=== PATIENT | female | born 1970 | race Caucasian/White ===

== ENCOUNTER 2019-03-24 16:05 | Emergency (ER) | payer MEDICAID, SELFPAY ==
[2019-03-24 16:06] VITALS: BP 162/97; PULSE 98; RESP 17; TEMP 36.8; O2SAT 94; BMI 34.2
[2019-03-24] MEDS: Naproxen 500 MG Tablet PO (16:52)
--- NOTE | 2019-03-24 17:00 | RAD_ITS ---
STUDY: X-RAY CHEST REASON FOR EXAM: Female, 48 years old. Left leg pain TECHNIQUE: PA and lateral views of the chest. COMPARISON: Prior study of 10/10/2015 FINDINGS: There is mild bilateral perihilar peribronchial cuffing. There is no demonstrated pleural abnormality. Normal size heart. Normal mediastinum and [place]. Normal visualized pulmonary arteries. Normal visualized aortic arch and descending thoracic aorta. Normal visualized thoracic spine. Normal visualized ribs, clavicles, and shoulders. There is no demonstrated abnormality of the visualized soft tissue structures of the upper abdomen. RAD/Chest PA and Lateral IMPRESSION: Mild bilateral perihilar peribronchial cuffing which may be associated with bronchitis or bronchospastic disease. There is no evidence of mayco infiltrate, atelectasis, or effusion. Electronically Signed: Idris Richard MD at 17:31 EDT , Service support ,
--- NOTE | 2019-03-24 17:01 | US_ITS ---
STUDY: VENOUS DOPPLER ULTRASOUND - LEFT LOWER EXTREMITY REASON FOR EXAM: Female, 48 years old. Left leg pain x2 weeks TECHNIQUE: Ultrasound evaluation of the deep vein system to include gruber-scale imaging and compression was performed. Gruber-scale imaging and Doppler sonographic evaluation, including duplex spectral analysis and qualitative color flow sonography, was performed. COMPARISON: None. FINDINGS: Common Femoral Vein: Normal compression, spontaneity and augmentation. Normal color Doppler. Common Femoral Vein/Greater Saphenous Junction: Normal compression. No internal echoes. Deep Femoral Vein: Not imaged Femoral Proximal: Normal compression, no internal echoes. Femoral Middle: Normal compression, spontaneity and augmentation. Normal color Doppler. Femoral Distal: Normal compression. No internal echoes. Popliteal Vein: Normal compression, spontaneity and augmentation. Normal color Doppler. Posterior Tibial Vein: Normal compression. No internal echoes. Peroneal Vein: Normal compression. No internal echoes. US/Venous Duplex Imag/Limited/Uni IMPRESSION: There is no evidence of deep venous thrombosis of the imaged structures of the left lower extremity. Electronically Signed: Idris Richard MD at 18:33 EDT , Service support ,
--- NOTE | 2019-03-24 17:07 | ED.VISSUMM ---
- ER Visit Summary Date of Service: 03/24/19 Chief Complaint: Left leg pain History of Present Illness: The patient is a 48 F who rolled her right ankle a few weeks ago. She had intermittent left thigh pain since that time and thinks she may alter her gait after injuring her right ankle. She states typically it was very brief and would resolve quickly but now pain is been more persistent the last couple days. She also complaining of cough and thinks that she may have bronchitis. She is a smoker. Physical Examination: Blood pressure is 1 6297, otherwise vitals unremarkable. Patient sitting upright in bed no acute distress. Heart is regular rate and rhythm. Lung sounds clear. Abdomen soft nontender. Back examination was mild tenderness in the left low lumbar paraspinals. Lower extremity examination reveals mild tenderness in the left thigh. No significant ID. She has strong distal pulses and good range of motion. Test Results: Two-view chest x-ray read by myself reveals no focal infiltrate. Venous ultrasound reveals no DVT. Emergency Department Course and Treatment: Patient is treated with naproxen and Flexeril. Test results are discussed with her. She will be given prescriptions for the same at home. Treatment Plan: [] Disposition: Discharge Impression: 1. Viral URI 2. Lumbar radiculopathy with muscle spasm This note was generated with Yuyuto dictation software. It may contain incorrect words, spelling, and punctuation that were not noted in review of the chart prior to signing ED Disposition - Plan for ED Patient: Disposition: Home or Assisted Living Instructions: ED Sciatica, ED Upper Resp Infec No Abx Tx Prescriptions: Naproxen [Naprosyn] 500 mg PO BID PRN PRN #20 tablet PRN Reason: Pain Cyclobenzaprine [Flexeril] 10 mg PO TID PRN #20 tablet PRN Reason: Muscle Spasm Referrals: Davis Kim MD [STAFF PHYSICIAN] - As Needed
[2019-03-24 18:08] VITALS: RESP 16
--- NOTE | 2019-03-24 18:08 | ED.RN ---
REVIEWED D/C INSTRUCTIONS, FOLLOW UP CARE, PRESCRIPTIONS, AND S/S THAT WOULD WARRANT A RETURN TO THE ED WITH PT. PT VERBALIZED AN UNDERSTANDING AND DENIES FURTHER QUESTIONS FOR THIS RN. PT SKIN P/W/D, RESP EVEN AND UNLABORED, PT A&O X 3, NO DISTRESS NOTED. PT AMBULATED OUT OF ED, GAIT STEADY.
== END 2019-03-24 18:09 | disposition home or self-care (01) ==
PROVIDERS: Emergency Provider Emergency Medicine
DX: M54.16 Radiculopathy, lumbar region (principal); M62.830 Muscle spasm of back; J06.9 Acute upper respiratory infection, unspecified; F17.200 Nicotine dependence, unspecified, uncomplicated
CPT/HCPCS: 71046; 93971; 99283

== ENCOUNTER 2019-10-13 21:05 | Emergency (ER) | payer MEDICAID, SELFPAY ==
[2019-10-13 21:06] VITALS: BP 156/83; PULSE 111; RESP 18; TEMP 36.8; O2SAT 98; BMI 32.9
--- NOTE | 2019-10-13 21:13 | RAD_ITS ---
HISTORY: SOB ADDITIONAL HISTORY: None provided. COMPARISON: 03/24/2019 TECHNIQUE: Frontal and lateral chest radiographs. Number of images including paperwork: 2 FINDINGS: LUNGS AND PLEURA: No consolidation, mass or pleural effusion. Peribronchial thickening. CARDIAC SILHOUETTE: Unremarkable. MEDIASTINUM AND ANGELICA: Unremarkable. UPPER ABDOMEN: Unremarkable. SKELETON AND SOFT TISSUES: No acute findings. OTHER DEVICES AND HARDWARE: None. RAD/Chest PA and Lateral IMPRESSION: Peribronchial thickening as can be seen with bronchitis and airways disease. at 2223 Reported and signed by: Jane Daly MD Electronically Signed: Jane Daly MD at 22:23 EST Tel , Service support ,
[2019-10-13] MEDS: predniSONE 20 MG Tablet 60 MG PO (21:37)
[2019-10-13] MEDS: Ipratropium/Albuterol Sulfate 3 ML AMPUL.NEB INHALATION (21:42)
[2019-10-13] MEDS: Albuterol 2.5 MG/3 ML VIAL.NEB. INHALATION ×3 (21:42)
[2019-10-13 21:43] VITALS: PULSE 105; RESP 18
--- NOTE | 2019-10-13 22:02 | ED.VISSUMM ---
- ER Visit Summary Date of Service: 10/13/19 Chief Complaint: Shortness of breath History of Present Illness: The patient is a 49 F longtime smoker whose chart has a prior diagnosis of COPD but she is not sure. She states for the past 3 days she said postnasal drip cough shortness of breath sputum production chills and sweats. She does not currently have a PCP. States that her shortness of breath is progressively gotten worse Physical Examination: Afebrile vital signs are stable Gen: Well-nourished well-developed Head: Normocephalic atraumatic Eyes: Perrl EOMI ENT: TMs clear no rhinorrhea moist mucous membranes Neck: Supple no lymphadenopathy no JVD nontender CVS: Regular rate rhythm no murmurs normal S1-S2 Respiratory: No distress Tory wheezes bilaterally chest nontender Abdomen: Soft nontender nondistended normal bowel sounds no masses Back: Nontender Extremity: Nontender no edema Skin: Normal color no rash Neuro: alert orientated ?3 CN II-XII intact normal strength sensation reflexes gait cerebellar Psych: Normal affect normal mood Test Results chest x-ray showed no infiltrate. Emergency Department Course and Treatment: Patient received breathing treatments and prednisone. Lungs are clear repeat auscultation. She will be discharged home with albuterol, prednisone, and doxycycline. She was advised that she keep smoking these episodes will become more frequent. I am also can refer her to pulmonology as she has never seen one. Impression: 1. Acute exacerbation of COPD This note was generated with Leadjini dictation software. It may contain incorrect words, spelling, and punctuation that were not noted in review of the chart prior to signing ED Disposition - Plan for ED Patient: Disposition: Home or Assisted Living Instructions: Copd Flare Prescriptions: Doxycycline 100 mg PO BID #14 cap Prescription Printed predniSONE tablet 60 mg PO DAILY #15 tab Prescription Printed Albuterol Inhaler [Ventolin Hfa] 2 puff INHALATION Q4H PRN PRN #1 inhaler PRN Reason: Wheezing Prescription Printed Referrals: Jeff Oglesby MD [STAFF PHYSICIAN] - (call to see a lung specialist)
[2019-10-13 23:09] VITALS: PULSE 107; RESP 18; O2SAT 94
== END 2019-10-13 23:10 | disposition home or self-care (01) ==
PROVIDERS: Emergency Provider Emergency Medicine
DX: J44.1 Chronic obstructive pulmonary disease with (acute) exacerbation (principal); F17.200 Nicotine dependence, unspecified, uncomplicated
CPT/HCPCS: 71046; 94640; 99283

== ENCOUNTER 2022-04-28 20:39 | Emergency (ER) | payer MEDICAID, SELFPAY ==
--- NOTE | 2022-04-28 20:14 | RAD_ITS ---
EXAM: XR LEFT FOOT COMPLETE, 3 OR MORE VIEWS CLINICAL INDICATION: Injury/Pain TECHNIQUE: Frontal, lateral and oblique views of the left foot. This report was created using Ph[employer] report generation technology. COMPARISON: None. FINDINGS: BONES/JOINTS: Prominent posterior calcaneal enthesophyte. Acute nondisplaced fracture involving the proximal aspect of the fifth proximal phalanx. No involvement of the adjacent articular surface. Preservation of the joint space. No sclerotic or destructive changes observed. SOFT TISSUES: Soft tissues swelling about the fracture site. No radiopaque foreign body. RAD/Foot min 3 Views IMPRESSION: Acute nondisplaced fracture involving the proximal aspect of the fifth proximal phalanx. Electronically Signed: Almas Maldonado MD at 21:58 EDT ,
[2022-04-28 20:40] VITALS: BP 127/91; PULSE 105; RESP 14; TEMP 36.4; O2SAT 97; BMI 36.0
--- NOTE | 2022-04-28 21:06 | ED.VIS.LOWEX ---
HPI History of Present Illness HPI Narrative: Patient presents with injury to her left fifth toe that occurred yesterday. Patient states she accidentally hit it on something while walking in the middle of the night. Patient describes her pain as sharp. Patient states nothing makes it better nothing makes it worse. Patient states the swelling is getting progressively worse. Patient admits to some numbness in the fifth toe. Patient denies any weakness. Patient denies any other injuries. Chief Complaint: Lower Extremity Injury Informant: patient Occured/Mechanism Mechanism/Context: Yes blunt trauma Onset/Context/Timing Onset: Yesterday Context: Sudden Onset Timing: Continuous Quality of Pain: Sharp Location: Left fifth toe Worsened by: Nothing Relieved by: Nothing Associated Symptoms Associated Symptoms: Positive for Parasthesia; Negative for Weakness and Loss of Funtion PFSH PFSH Medical History no medical history Home Medications sulfamethoxazole-trimethoprim 1 tab PO BID 04/28/22 [History Last Taken Unknown] Allergy/AdvReac Type Severity Reaction Status Date / Time azithromycin Allergy Other Verified 04/28/22 20:40 Surgical History (Updated 04/28/22 @ 21:[address] Julio Ryder DO) History of section Hx of nasal septoplasty Social History Smoking Status: Current every day smoker tobacco type: cigarettes ROS ROS ED Constitutional Constitutional ED: Denies chills or fever(s) Eyes Eyes: Denies blurry vision or change in vision ENT ENT ED: Denies rhinorrhea or sore throat Cardiovascular Cardiovascular: Denies chest pain or palpitations Respiratory/Chest Respiratory/Chest: Denies cough or dyspnea Gastrointestinal Gastrointestinal: Reports nausea; Denies vomiting Genitourinary Genitourinary ED: Denies dysuria or hematuria Musculoskeletal Musculoskeletal: Denies back pain or neck pain Integumentary Denies abscess or rash Neurologic Neurologic: Denies headache(s) or weakness Allergic/Immunologic Allergic/Immunologic ED: Denies mouth swelling or urticaria EXAM Physical Exam Const Vital Signs: 04/28/22 20:40 Temperature 97.5 F L Temperature Source Temporal Pulse Rate 105 H Respiratory Rate 14 Blood Pressure 127/91 H Blood Pressure Mean 103 Pulse Ox 97 Oxygen Delivery Method Room Air Positive well nourished, well developed and obese General Appearance ED: well developed and NAD Nutritional Appearance: obese Neck full ROM Extremity Extremity Narrative: There is tenderness, edema, and ecchymosis over the proximal phalanx of the left fifth toe. There is no obvious deformity noted. Range of motion was limited in all motions of the left fifth toe secondary to pain. Sensation was intact to light touch in all digits. Capillary refill was less than 2 seconds in all digits. There is no tenderness over the fifth metatarsal. There is no tenderness over the ankle or proximal fibula. Neuro oriented x3, CN's II-XII intact bilaterally, moves all extremities and no sensory deficits noted Sensorium / Orientation: alert Motor Exam: strength 5/5 throughout Psych mental status grossly normal MDM MDM MDM Narrative Medical decision making narrative: X-rays of the left foot were obtained. There are 3 views. On my interpretation, there is an acute fracture of the proximal phalanx of the left fifth toe. There is no displacement noted. There is no dislocation. There is some mild soft tissue swelling. Radiologist also interpreted the x-rays and agrees. The fourth and fifth toes were dean taped together. Patient was given a postoperative shoe. Patient was instructed to ice and elevate the left foot. Patient was instructed to take Tylenol or ibuprofen as needed for pain. Patient was instructed to follow-up with her primary care physician in 5 to 7 days. Patient understood and was agreeable with the plan. All questions were answered. Discharge Plan Triage Chief Complaint: Lower Extremity Injury ED Provider: Julio Ryder Dx/Rx/DC Orders Clinical Impression: Closed fracture of fifth toe of left foot Instructions: Fx Finger Toe Prescriptions: No Action sulfamethoxazole-trimethoprim 800-160 mg tablet 1 tab PO BID RF: 0 Primary Care Provider: Care Physician,No Primary Referrals: Alexsandra Nuñez MD [STAFF PHYSICIAN] - 5-7 Days Care Physician,No Primary [Primary Care Provider] - Disposition Disposition: Home, Self Care
== END 2022-04-28 21:45 | disposition home or self-care (01) ==
PROVIDERS: Emergency Provider Emergency Medicine; Visit Provider Emergency Medicine
DX: S92.502A Displaced unspecified fracture of left lesser toe(s), initial encounter for closed fracture (principal); F17.210 Nicotine dependence, cigarettes, uncomplicated; E66.9 Obesity, unspecified; X58.XXXA Exposure to other specified factors, initial encounter
CPT/HCPCS: 73630; 99283

== ENCOUNTER 2022-05-07 22:36 | Emergency (ER) | payer MEDICAID, SELFPAY ==
[2022-05-07 22:37] VITALS: BP 159/97; PULSE 99; RESP 18; TEMP 36.3; O2SAT 99; BMI 34.7
[2022-05-07 23:20] LABS: Mucous, Urine 0 SEEN /hpf (<or=2+)
[2022-05-07 23:24] LABS: Color, Urine Yellow (Yellow); Glucose, Dipstick Normal (Normal); Ketone-Dipstick Negative (Negative); Leukocyte Esterase-Dipstick 25 /ul (Negative); Nitrite-Dipstick Negative (Negative); Occult Blood-Urine 150 /ul (Negative); Protein-Dipstick Negative (Negative); Urine Bilirubin Dipstick Negative (Negative); Urine Clarity Sl. Cloudy (Clear); Urine Urobilinogen 1 mg/dl (Normal)
[2022-05-07 23:36] LABS: Bacteria 1+ /hpf (None Seen); Red Blood Cells-Urine 0-5 SEEN /hpf (0-5); Squamous Epithelial Cells - UA 0-5 SEEN /hpf (5-10); White Blood Cells 0-5 SEEN /hpf (0-5)
--- NOTE | 2022-05-08 00:16 | EDS_ITS ---
HPI History of Present Illness Chief Complaint: Complaint Narrative Narrative: Patient is a 51-year-old female who states that she has had about 24 hours of difficulty urinating. She states she still has been able to urinate but she feels like she is straining to do so and is only getting a small amount out. She denies any fevers but does report subjective chills. She states she has never had urinary retention issues in the past. She does report that her previous urine samples have contained blood. She states she was concerned that she may be having retention or infection and secondary to this comes in for [facility] Home Medications cephalexin 500 mg capsule 500 mg PO TID 7 days #21 caps 05/08/22 [Rx Last Taken Unknown] phenazopyridine 200 mg tablet (Pyridium) 200 mg PO TID 2 days #6 tabs 05/08/22 [Rx Last Taken Unknown] Allergy/AdvReac Type Severity Reaction Status Date / Time azithromycin Allergy Other Verified 05/07/22 22:39 Surgical History (Updated 04/28/22 @ 21:[address] uJlio Ryder DO) History of section Hx of nasal septoplasty Social History Smoking Status: Current every day smoker tobacco type: cigarettes ROS ROS ED Constitutional Constitutional ED: Reports chills and subjective; Denies fever(s) ENT ENT ED: Denies sore throat Cardiovascular Cardiovascular: Denies chest pain Respiratory/Chest Respiratory/Chest: Denies cough or dyspnea Gastrointestinal Gastrointestinal: Reports abdominal pain; Denies diarrhea, nausea or vomiting Genitourinary Genitourinary ED: Denies dysuria Musculoskeletal Musculoskeletal: Denies myalgias Integumentary Denies rash Neurologic Neurologic: Denies headache(s) Hematologic/Lymphatic Hematologic/Lymphatic: Denies easy bleeding or easy bruising EXAM Physical Exam Const Vital Signs: 05/07/22 22:37 Temperature 97.3 F L Temperature Source Temporal Pulse Rate 99 Respiratory Rate 18 Blood Pressure 159/97 H Blood Pressure Mean 117 Pulse Ox 99 Oxygen Delivery Method Room Air Positive well nourished and well developed General Appearance ED: well developed Eyes PERRL and EOMs intact bilaterally Neck supple Resp normal respiratory effort and clear to auscultation bilaterally Cardio regular rate and regular rhythm GI non-tender, non-distended and no masses GI Narrative: No obvious organomegaly palpated in suprapubic region to suggest urinary retention. No fluid wave or pulsatile mass no guarding or rigidity Auscultation: normoactive bowel sounds Palpation: soft Back/Spine no CVA tenderness Extremity normal to inspection Neuro oriented x3 and CN's II-XII intact bilaterally Sensorium / Orientation: alert Psych mental status grossly normal Skin no rashes or lesions noted MDM MDM MDM Narrative Medical decision making narrative: Patient presented to the ER complaining of difficulty urinating but by exam did not have any obvious signs of retention. As she was still able to produce urine I felt that this is most likely bladder spasm secondary to UTI. A bladder scan was performed in the ER which does not show any gross retention of urine. The patient's urine sample does show changes consistent with infection. Her temperature is normal and she is awake and alert and actually mildly hypertensi ve and therefore there are no obvious findings to suggest sepsis based on these values. Also as she has been able to urinate I do not feel there is concern for acute kidney injury and as she has no CVA pain I do not believe she has pyelonephritis. Therefore I did not feel there is need for further laboratory studies. Patient replaced on antibiotics and Pyridium secondary to the UTI but is otherwise safe for discharge. On reevaluation she is resting comfortably with a soft nonsurgical abdomen Lab Data Attestation: I reviewed the patient's lab results. Labs: Laboratory Results - last 24 hr 05/07/22 23:15 Urine Color Yellow Urine Clarity Sl. Cloudy Urine pH 6.0 Ur Specific [place] 1.020 Urine Protein Negative Urine Glucose (UA) Normal Urine Ketones Negative Urine Occult Blood 150 H Urine Nitrite Negative Urine Bilirubin Negative Urine Urobilinogen 1 H Ur Leukocyte Esterase 25 H Urine RBC 0-5 SEEN Urine WBC 0-5 SEEN Ur Squamous Epith Cells 0-5 SEEN Urine Bacteria 1+ Urine Mucus 0 SEEN Discharge Plan Triage Chief Complaint: Complaint ED Provider: Almas Rob Dx/Rx/DC Orders Clinical Impression: Urinary tract infection Instructions: UITs Women Prescriptions: New phenazopyridine [Pyridium] 200 mg tablet 200 mg PO TID 2 Days Qty: 6 0RF cephalexin 500 mg capsule 500 mg PO TID 7 Days Qty: 21 0RF Primary Care Provider: Care Physician,No Primary Referrals: John Holly MD [STAFF PHYSICIAN] - 3-5 Days if not improving Care Physician,No Primary [Primary Care Provider] - Activity Restrictions/Additional Instructions: He is to your medication as directed to help resolve your urinary tract infection which will typically take about 2 to 3 days. If you develop a fever over 100.4 or have worsening pain or any further concerns please return to the ER for repeat evaluation Disposition Disposition: Home, Self Care
[2022-05-08] MEDS: Cephalexin 250 MG Capsule 500 MG PO (00:24)
[2022-05-08] MEDS: Phenazopyridine 95 MG Tablet 190 MG PO (00:24)
== END 2022-05-08 00:29 | disposition home or self-care (01) ==
PROVIDERS: Emergency Provider Emergency Medicine; Visit Provider Emergency Medicine
DX: N39.0 Urinary tract infection, site not specified (principal); F17.210 Nicotine dependence, cigarettes, uncomplicated
CPT/HCPCS: 81001; 87086; 87088; 99283

== ENCOUNTER 2024-05-20 00:22 | Emergency (ER) | payer MEDICAID, SELFPAY ==
[2024-05-20 00:24] VITALS: BP 158/98; PULSE 99; RESP 18; TEMP 36.7; O2SAT 94; BMI 37.8
--- NOTE | 2024-05-20 00:42 | EKG12_ITS ---
Test Reason : Blood Pressure : / mmHG Vent. Rate : 089 BPM Atrial Rate : 089 BPM P-R Int : 150 ms QRS Dur : 076 ms QT Int : 350 ms P-R-T Axes : 066 040 064 degrees QTc Int : 425 ms Normal sinus rhythm Normal ECG Confirmed by Devonte Sotomayor ([id number]), online content editor MARLEY ROBERTO ([id number]) on 05/22/2024 10:42:58 AM Referred By: Confirmed By:Devonte Sotomayor
[2024-05-20] MEDS: MethylPREDNISolone 125 MG/2 ML Vial IV (00:56)
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
[2024-05-20 01:09] VITALS: PULSE 88; RESP 18
[2024-05-20] MEDS: Ipratropium/Albuterol Sulfate 3 ML AMPUL.NEB INHALATION (01:09)
--- NOTE | 2024-05-20 01:25 | RAD_ITS ---
INDICATION: dyspnea EXAMINATION/TECHNIQUE: X-RAY - XR Chest 2 Views COMPARISON: Prior study dated: 10/13/2019 FINDINGS: LINES/DEVICES: None. LUNGS: The lungs are well expanded. Mild bronchial wall thickening. No consolidation, edema or effusion. No pneumothorax. MEDIASTINUM AND CARDIOVASCULAR STRUCTURES: Cardiac silhouette not enlarged. Central airways and mediastinal contour are unremarkable. BONES AND SOFT TISSUES: No acute abnormality. RAD/Chest PA and Lateral IMPRESSION: No consolidation. Bronchial wall thickening can be seen with a small airways process such as asthma or atypical/viral infection. Electronically Signed: Domenico Tejada MD at 2:10 EDT ,
[2024-05-20] MEDS: Albuterol Sulfate 8 gm Inhaler (60 puffs) 2 PUFF INHALATION (01:56)
[2024-05-20 01:58] VITALS: BP 110/83; PULSE 87; RESP 17; TEMP 36.2; O2SAT 96
== END 2024-05-20 02:04 | disposition home or self-care (01) ==
LOC: ED 01:54
PROVIDERS: Emergency Provider Emergency Medicine; PCP Family Medicine; Visit Provider Emergency Medicine
DX: T65.891A Toxic effect of other specified substances, accidental (unintentional), initial encounter (principal); J44.0 Chronic obstructive pulmonary disease with (acute) lower respiratory infection; J68.0 Bronchitis and pneumonitis due to chemicals, gases, fumes and vapors; F17.210 Nicotine dependence, cigarettes, uncomplicated
CPT/HCPCS: 71046; 93005; 94640; 96374; 99282; A4216

== ENCOUNTER 2025-03-09 22:18 | Emergency (ER) | payer MEDICAID, SELFPAY ==
[2025-03-09 22:20] VITALS: BP 171/80; PULSE 97; RESP 20; TEMP 36.6; O2SAT 96; BMI 38.1
[2025-03-09 22:38] VITALS: PULSE 99; RESP 18
[2025-03-09 22:47] VITALS: PULSE 106; RESP 12
[2025-03-09 22:52] VITALS: PULSE 106; RESP 18
[2025-03-09] MEDS: Ipratropium/Albuterol Sulfate 3 ML AMPUL.NEB INHALATION (22:52)
[2025-03-09 22:57] LABS: Mucous, Urine 0 SEEN /hpf (<or=2+)
[2025-03-09 22:59] LABS: Color, Urine Yellow (Yellow); Glucose, Dipstick Normal (Normal); Ketone-Dipstick Negative (Negative); Leukocyte Esterase-Dipstick 25 /ul (Negative); Nitrite-Dipstick Negative (Negative); Occult Blood-Urine 50 /ul (Negative); Protein-Dipstick 15 mg/dl (Negative); Specific Gravity, Urine 1.025 (1.002-1.030); Urine Bilirubin Dipstick Negative (Negative); Urine Clarity Clear (Clear); Urine Urobilinogen 4 mg/dl (Normal)
[2025-03-09 23:00] VITALS: BP 119/81; PULSE 103; RESP 14; O2SAT 95
--- NOTE | 2025-03-09 23:02 | EX.ED.DYSGE1 ---
HPI History of Present Illness Chief Complaint: Shortness of Breath Informant: patient Narrative Narrative: 54-year-old female with history of asthma states she has had a cough, laryngitis lost her voice for about 2 weeks, started with cleaning out a shed she states. No fevers or chills. Cough is nonproductive. For the last 3 days she has also had times where she goes to urinate and then nothing comes out and other times comes out normally she denies dysuria but she has some mild low back pain, no abdominal pain, vomiting, diarrhea. No hematuria. She states she thinks her legs are little swollen. She denies any chest pain or tightness, but feels like she has been a little out of breath and thinks it is in her throat. [facility] Medical History (Updated 03/10/25 @ 00:[address] Arthur Akhtar MD) Asthma Home Medications ?Medication ?Instructions ?Recorded ?Last Taken ?Type phenazopyridine 200 mg tablet 200 mg PO TID 2 days #6 tabs 05/08/22 Unknown Rx (Pyridium) albuterol sulfate 90 mcg/actuation 1 - 2 puff inhalation Q4H PRN PRN 03/10/25 Unknown Rx aerosol inhaler (Ventolin HFA) Wheezing ##1 amoxicillin 875 mg-potassium 875 mg PO Q12H #20 TABLETS 03/10/25 Unknown Rx clavulanate 125 mg tablet prednisone 20 mg tablet 40 mg (2 x 20 mg) PO DAILY 5 days 03/10/25 Unknown Rx #10 tabs Allergy/AdvReac Type Severity Reaction Status Date / Time azithromycin Allergy Other Verified 03/09/25 22:23 Surgical History Hx of nasal septoplasty History of section Social History Smoking Status: Current every day smoker tobacco type: cigarettes ROS ROS ED Constitutional Constitutional ED: Denies chills or fever(s) Eyes Eyes: Denies change in vision or diplopia ENT ENT ED: Reports hoarseness; Denies rhinorrhea or sore throat Cardiovascular Cardiovascular: Denies chest pain or palpitations Respiratory/Chest Respiratory/Chest: Reports cough and dyspnea Gastrointestinal Gastrointestinal: Denies abdominal pain, diarrhea, nausea or vomiting Genitourinary Genitourinary ED: Reports as per HPI and difficulty urinating; Denies dysuria or hematuria Musculoskeletal Musculoskeletal: Reports back pain; Denies neck pain Integumentary Denies abscess or rash Neurologic Neurologic: Denies headache(s), paresthesias or weakness Psychiatric Psychiatric: Denies suicidal thoughts EXAM Physical Exam Const Vital Signs: 03/09/25 22:20 03/09/25 22:27 03/09/25 22:38 Temperature 97.8 F Temperature Source Oral Pulse Rate 97 99 Respiratory Rate 20 H 18 Respiratory Effort Labored Respiratory Pattern Blood Pressure 171/80 H Blood Pressure Mean 110 Pulse Ox 96 Oxygen Delivery Method Room Air 03/09/25 22:47 03/09/25 22:52 03/09/25 23:00 Temperature Temperature Source Pulse Rate 106 H 106 H 103 H Respiratory Rate 12 18 14 Respiratory Effort Respiratory Pattern Normal Blood Pressure 119/81 H Blood Pressure Mean 93 Pulse Ox 95 Oxygen Delivery Method Positive well nourished, well developed and obese General Appearance ED: well developed and NAD Nutritional Appearance: obese HEENT Reports moist mucous membranes HEENT Narrative: Hoarse voice no stridor normocephalic and atraumatic Eyes PERRL and EOMs intact bilaterally Neck full ROM and supple Resp normal respiratory effort Resp Narrative: Diffuse expiratory wheezes symmetric, otherwise clear. Conversive in full sentences no distress. Cardio regular rate, regular rhythm and no murmurs GI non-tender and non-distended Auscultation: normoactive bowel sounds Palpation: soft Back/Spine no CVA tenderness General Back: other FROM Extremity normal to inspection Extremity Narrative: No pitting edema General Extremety ED: Negative for edema, pulses abnormal or tenderness General Extremity: Negative for edema or pulses abnormal Neuro oriented x3, CN's II-XII intact bilaterally and no sensory deficits noted Sensorium / Orientation: awake and alert Motor Exam: strength 5/5 throughout Psych mental status grossly normal Skin no rashes or lesions noted and no wounds MDM MDM MDM Narrative Medical decision making narrative: To the patient's urine for urinalysis, it is negative for infection on my interpretation. After nebulizer treatment she did feel a lot better with regards to her wheezing/dyspnea, 2 view chest x-ray my interpretation shows a subtle left lower lobe infiltrate which radiology was in agreement with. Her vital signs are normal, blood pressure 119/81, pulse ox 95-96% on room air. She is in no respiratory distress and clinically is not septic. Think she may treat as an outpatient I do not think we need other labs right now. She states she has a history of an allergy to azithromycin. When asked about the details, she states it causes her to have coughing fits. I advised her that is probably not an allergy, and probably had nothing to do with the medication but she wants to try something else anyway. Since we are prescribing her prednisone for her asthma, we would be jolley to steer clear of fluoroquinolones given the risk of tendon rupture, so will prescribe her Augmentin which she has tolerated in the past, and also gave her a prescription for an albuterol inhaler. Advised that she follow-up with her doctor next week after the weekend for reevaluation. Lab Data Attestation: I reviewed the patient's lab results. Labs: Laboratory Results - last 24 hr 03/09/25 22:48 Urine Color Yellow Urine Clarity Clear Urine pH 6.0 Ur Specific [place] 1.025 Urine Protein 15 H Urine Glucose (UA) Normal Urine Ketones Negative Urine Occult Blood 50 H Urine Nitrite Negative Urine Bilirubin Negative Urine Urobilinogen 4 H Ur Leukocyte Esterase 25 H Urine RBC 0-5 SEEN Urine WBC 0-5 SEEN Ur Squamous Epith Cells 5-10 SEEN Urine Bacteria RARE Urine Mucus 0 SEEN Radiography Diagnostic Testing: Clinical Impression(s) from Imaging Studies Chest X-Ray 03/09/25 23:15 IMPRESSION: Focal left lower lobe pneumonia. Reading Location: [facility] Discharge Plan Triage Chief Complaint: Shortness of Breath Other Complaint: Complaint ED Provider: Arthur Akhtar Dx/Rx/DC Orders Clinical Impression: Pneumonia, Acute asthma exacerbation Instructions: ED Asthma, Acute (Adult), ED Pneumonia (Adult) Prescriptions: New prednisone 20 mg tablet 40 mg PO DAILY 5 Days Qty: 10 0RF albuterol sulfate [Ventolin HFA] 90 mcg/actuation HFA aerosol inhaler 1 - 2 puff inhalation Q4H PRN PRN (Reason: Wheezing) Qty: 1 0RF amoxicillin-pot clavulanate 875-125 mg tablet 875 mg PO Q12H Qty: 20 0RF Continued phenazopyridine [Pyridium] 200 mg tablet 200 mg PO TID 2 Days Qty: 6 0RF Discontinued cephalexin 500 mg capsule 500 mg PO TID 7 Days Qty: 21 0RF prednisone 20 mg tablet 40 mg PO DAILY 5 Days Qty: 10 0RF Primary Care Provider: Mariely Juarez Referrals: Mariely Juarez DO [Primary Care Provider] - (this coming week for reevaluation - call to make appt) Print Language: Romanian Disposition Disposition: Home, Self Care
--- NOTE | 2025-03-09 23:15 | RAD_ITS ---
PROCEDURE: CHEST PA AND LATERAL 03/09/2025 REASON FOR EXAM: COUGH SOB TECHNIQUE: Frontal and lateral views of the chest. FINDINGS: Hardware: None Heart: The heart size is normal. Mediastinum: The mediastinal contour is unremarkable. Lungs: Alveolar opacity in the posteromedial left lower lobe consistent with pneumonia. Bones: The bones are unremarkable. RAD/Chest PA and Lateral IMPRESSION: Focal left lower lobe pneumonia. Reading Location: [id number]
[2025-03-09 23:28] LABS: Red Blood Cells-Urine 0-5 SEEN /hpf (0-5); White Blood Cells 0-5 SEEN /hpf (0-5)
[2025-03-09 23:29] LABS: Bacteria RARE /hpf (None Seen); Squamous Epithelial Cells - UA 5-10 SEEN /hpf (5-10)
[2025-03-10] MEDS: Amox/Clavulanate 875 MG Tablet PO (00:47)
[2025-03-10] MEDS: predniSONE 20 MG Tablet 40 MG PO (00:47)
[2025-03-10 00:50] VITALS: BP 137/67; PULSE 93; RESP 16; TEMP 36.7; O2SAT 93
== END 2025-03-10 00:50 | disposition home or self-care (01) ==
PROVIDERS: Emergency Provider Emergency Medicine; PCP Family Medicine; Visit Provider Emergency Medicine
DX: J18.9 Pneumonia, unspecified organism (principal); J45.901 Unspecified asthma with (acute) exacerbation; E66.9 Obesity, unspecified; F17.210 Nicotine dependence, cigarettes, uncomplicated; Z88.1 Allergy status to other antibiotic agents
CPT/HCPCS: 71046; 81001; 94640; 99283